=== PATIENT | female | born 2000 | race Caucasian/White ===

== ENCOUNTER 2021-01-07 13:03 | Outpatient (CLI) | payer BC, SELFPAY | END 2021-01-07 13:04 | disposition home or self-care (01) | LOC: ANHCOVIDVC 13:03 | PROVIDERS: PCP Physician Assistant | DX: Z23 Encounter for immunization (principal) | CPT/HCPCS: 0001A; 91300 ==

== ENCOUNTER 2021-01-28 13:00 | Outpatient (CLI) | payer BC, SELFPAY | END 2021-01-28 13:01 | disposition home or self-care (01) | LOC: ANHCOVIDVC 13:00 | PROVIDERS: PCP Physician Assistant | DX: Z23 Encounter for immunization (principal) | CPT/HCPCS: 0002A; 91300 ==

== ENCOUNTER 2021-08-15 15:12 | Emergency (ER) | payer BC, SELFPAY ==
--- NOTE | 2021-08-15 15:19 | ED.LOWEXIN ---
HPI - Extremity Injury (Lower) General Chief Complaint: Extremity Injury, Lower Stated Complaint: rt leg pain Time Seen by Provider: 08/15/21 15:19 Source: patient, RN notes reviewed and old records reviewed Mode of arrival: ambulatory Limitations: no limitations History of Present Illness HPI Narrative: 21-year-old female presents to the [facility] with complaints of right calf pain without bruising, swelling or redness. No signs of infection. Patient reports that she was practicing my discus throw. At 3 AM Tuesday morning when she felt a pain, pop and strain in the right posterior calf. No treatment prior to arrival. Patient has a history of bipolar, depression, ADHD. Patient requesting a work modification note. States that when she is at work she walks a lot. Related Data Home Medications Medication Instructions Recorded Confirmed dextroamphetamine-amphetamine 10 mg PO BID 08/15/21 08/15/21 lamotrigine 100 mg PO BID 08/15/21 08/15/21 Allergies Allergy/AdvReac Type Severity Reaction Status Date / Time No Known Allergies Allergy Unknown Unverified 08/15/21 15:28 Review of Systems Review of Systems: All systems reviewed & are unremarkable except as noted in HPI and below Constitutional: Constitutional: Reports no additional constitutional complaints, Denies chills and Denies fever(s) Eyes: Eyes: Reports no additional eye complaints ENT: Reports system reviewed and no additional complaints, except as documented Cardiovascular: Cardiovascular: Reports no additional cardiovascular complaints Respiratory: Respiratory: Reports no additional respiratory complaints Gastrointestinal: Gastrointestinal: Reports no additional gastrointestinal complaints Musculoskeletal: Musculoskeletal: Reports as per HPI and Reports muscle cramps (Right posterior calf) Integumentary/Breasts: Skin/Breast: Reports system reviewed and no additional complaints, except as docu Neurologic: Reports system reviewed and no additional complaints, except as documented Psychiatric: Psychiatric: Reports no additional psychiatric complaints Allergic/Immunologic: Allergic/Immunologic: Reports no additional allergic/immunologic complaints PMFSH Past Medical History Medical History Bipolar II disorder Major depression, recurrent Surgical History Surgical History [place] teeth removed Family History Family History Mother Family history of thyroid disease Grandparent Family history of thyroid disease Depression Hypertension Social History Social History Smoking status: Never smoker Alcohol intake: never Substance use: never Substance use type: does not use Additional occupation/education comments: 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 Comments At the time of my signature, I reviewed and agree with the nursing past medical, surgical, social, and family history. There is no relevant family history pertinent to the patient complaint. Exam Const: General: healthy appearing, no acute distress and alert Nutritional Appearance: well nourished Orientation/consciousness: patient oriented x3 Limitations: no limitations HENMT: Head: normal to inspection Eyes: Pupils: Equal, round and reactive pupils present Neck: Neck: normal visual inspection, no lymphadenopathy and no meningeal signs Chest: Chest palpation & inspection: normal inspection of the chest Resp: Effort & Inspection: normal respiratory effort Cardio: Rate: regular rate Rhythm: regular rhythm : General: Yes no CVA tenderness Back/Spine/Pelvis: Back: no CVA tenderness Skin: General skin exam: normal color Rashes: no rashes Wounds: no wounds Neuro: General: patient oriented x3, moves all extremities, no meningeal signs and no focal motor deficits Spee
[2021-08-15 15:20] VITALS: BP 106/68; PULSE 89; RESP 16; TEMP 36.3; O2SAT 100
== END 2021-08-15 15:38 | disposition home or self-care (01) ==
PROVIDERS: Emergency Provider Nurse Practitioner
DX: S86.111A Strain of other muscle(s) and tendon(s) of posterior muscle group at lower leg level, right leg, initial encounter (principal); X58.XXXA Exposure to other specified factors, initial encounter; F31.9 Bipolar disorder, unspecified
CPT/HCPCS: 99213; G0463

== ENCOUNTER 2021-09-24 23:32 | Emergency (ER) | payer BC, SELFPAY ==
--- NOTE | ~2021-09-24 | XR_ITS ---
EXAMINATION: XR chest 1V portable DATE: 09/25/2021 02:54 INDICATION: Chest pain. Streptococcus diagnosis. TECHNIQUE: frontal view of the chest was obtained. COMPARISON: None FINDINGS: The lungs are clear with no focal airspace opacities, pulmonary edema, pleural effusion or pneumothor ax. The cardiomediastinal silhouette is normal. Visualized bones and soft tissues are unremarkable. IMPRESSION: 1. Normal chest radiograph. Reviewed, dictated and finalized at location A. JELLY IMPRESSION: 1. Normal chest radiograph.
[2021-09-24 23:51] VITALS: BP 131/67; PULSE 98; RESP 18; TEMP 36.3; O2SAT 100
--- NOTE | 2021-09-25 02:40 | ECG_ITS ---
Measurements Intervals [place] Rate: 77 P: -8 LA: 160 QRS: 58 QRSD: 97 T: 12 QT: 377 QTc: 428 Interpretive Statements SINUS RHYTHM WITH SINUS ARRHYTHMIA NORMAL ECG Electronically Signed On 09-25-2021 6:01:27 HEATING FIXTURE TENDER by Lorenzo Bai D.O.
[2021-09-25] MEDS: methylPREDNISolone SOD SUCC 125 MG VIAL IM (03:06)
--- NOTE | 2021-09-25 03:19 | ED.GENADULT ---
HPI - General Adult General Chief complaint: Upper Respiratory Infection Stated complaint: I have strep, its hard to breathe Time Seen by Provider: 09/25/21 02:33 History of Present Illness HPI narrative: Patient 21-year-old female presents emerged department with chief complaint of sore throat and chest pain. Patient reports she was seen in urgent care diagnosed with strep today started on antibiotics and noticed that she felt as though her throat was still hurting and also noticed that she had developed pain in the right side of her chest. The patient states the pain is a pressure-like since reports not improved by anything or is worsened by anything Related Data Home Medications Medication Instructions Recorded Confirmed dextroamphetamine-amphetamine 10 mg PO BID 08/15/21 08/15/21 lamotrigine 100 mg PO BID 08/15/21 08/15/21 Allergies Allergy/AdvReac Type Severity Reaction Status Date / Time No Known Allergies Allergy Unknown Unverified 08/15/21 15:28 Review of Systems Review of Systems: A 10 system review of systems was completed on the patient and is negative except for what is stated in the HPI. Nursing and ancillary documentation was reviewed. 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 Exam Narrative: GENERAL: Well-appearing, well-nourished, and in no acute distress. HEAD: Normocephalic, atraumatic. EYES: PERRLA and EOMI. ENT: Nares clear, no rhinorrhea or epistaxis. Mucous membranes moist. NECK: Supple. CHEST: Clear to auscultation. No respiratory distress. HEART: Regular rate and rhythm. No murmur heard. Normal peripheral pulses. ABDOMEN: Soft, nontender, nondistended, normal active bowel sounds. EXTREMITIES: Normal range of motion. No edema. SKIN: Warm, dry, no rash. NEURO: No focal deficits. Alert and oriented x3. PSYCH: Normal mood and affect. Course Course Emergency Course: EKG is sinus rhythm rate of [address] elevation or ST depression Chest x-ray shows no evidence of focal infiltrate Vital Signs Vital signs: Vital Signs Temperature 36.3 C L 09/24/21 23:51 Pulse Rate 98 09/24/21 23:51 Respiratory Rate 18 09/24/21 23:51 Blood Pressure 131/67 09/24/21 23:51 Pulse Oximetry 100 09/24/21 23:51 Temperature 36.3 C L 09/24/21 23:51 Pulse Rate 98 09/24/21 23:51 Respiratory Rate 18 09/24/21 23:51 Blood Pressure 131/67 09/24/21 23:51 Pulse Oximetry 100 09/24/21 23:51 Medical Decision Making Vital Signs Vital Signs: Vital Signs Temperature 36.3 C L 09/24/21 23:51 Pulse Rate 98 09/24/21 23:51 Respiratory Rate 18 09/24/21 23:51 Blood Pressure 131/67 09/24/21 23:51 Pulse Oximetry 100 09/24/21 23:51 Temperature 36.3 C L 09/24/21 23:51 Pulse Rate 98 09/24/21 23:51 Respiratory Rate 18 09/24/21 23:51 Blood Pressure 131/67 09/24/21 23:51 Pulse Oximetry 100 09/24/21 23:51 Discharge Plan Discharge Clinical Impression: Pharyngitis Qualifiers: Pharyngitis/tonsillitis etiology: streptococcus Qualified Code(s): J02.0 - Streptococcal pharyngitis Upper respiratory infection Qualifiers: URI type: unspecified URI Qualified Code(s): J06.9 - Acute upper respiratory infection, unspecified Chest blank
[2021-09-25 03:50] VITALS: BP 130/78; PULSE 68; RESP 18; O2SAT 98
== END 2021-09-25 03:51 | disposition home or self-care (01) ==
PROVIDERS: Emergency Provider Emergency Medicine
DX: J02.9 Acute pharyngitis, unspecified (principal); J06.9 Acute upper respiratory infection, unspecified; R07.9 Chest pain, unspecified; F31.81 Bipolar II disorder
CPT/HCPCS: 71045; 93005; 96372; 99283; J2930

== ENCOUNTER 2021-09-28 11:26 | Emergency (ER) | payer BC, SELFPAY ==
--- NOTE | ~2021-09-28 | XR_ITS ---
EXAMINATION: XR chest 2V DATE: 09/28/2021 14:29 INDICATION: Left arm tingling. Chest tightness. TECHNIQUE: Frontal and lateral views of the chest were obtained. COMPARISON: Chest single view 09/25/2021 FINDINGS: The chest demonstrates clear lungs without pneumonia, pleural effusion, or pneumothorax. Th e heart size is normal. IMPRESSION: 1. No acute cardiopulmonary disease. Reviewed, dictated and finalized at location A. ESSOR OF LANGUAGES
--- NOTE | ~2021-09-28 | CT_ITS ---
EXAMINATION: CT brain wo con EXAM DATE: 09/28/2021 15:12 INDICATION: Paresthesias TECHNIQUE: Spiral CT of the head was performed without contrast. Axial, coronal and sagittal images were reviewed. The dose-length product (DLP) for this examination was 605.33 mGy-cm. The exposure w as tailored according to patient size, and iterative reconstruction (ASIR) was used as additional dos e reduction technique. There is no prior study for comparison. FINDINGS: There is no acute intraparenchymal hemorrhage. No evidence of intraparenchymal brain mass lesion. No evidence of acute infarction. There is no mass effect or midline shift. The ventricles are normal in size. There are no extra-axial collections. There are no acute calvarial fractures. T he orbits are unremarkable. Soft tissue is unremarkable. The visualized sinuses and mastoid air eloina ls are well aerated. IMPRESSION: 1. Normal head CT examination. Reviewed, dictated and finalized at location A. EMIC COACH
--- NOTE | ~2021-09-28 | US_ITS ---
EXAMINATION: US abdomen limited DATE: 09/28/2021 15:52 INDICATION: Right upper quadrant pain TECHNIQUE: Multiple grayscale and Doppler ultrasound images of the abdomen were obtained. COMPARISON: None available FINDINGS: The head and body of the pancreas are normal. The pancreatic tail is obscured by bowel gas. The liver is normal with normal echogenicity and echotexture. No surface nodularity. Normal hepatope louis flow in the main portal vein. The gallbladder is normal with no abnormal wall thickening, pericho lecystic fluid or stones. The normal common bile duct measures 4 mm. There was no sonographic Stroud sign. IMPRESSION: 1. Normal sonographic study of the gallbladder. Reviewed, dictated and finalized at location A. TLET PAIRER
[2021-09-28 11:33] VITALS: BP 137/90; PULSE 78; RESP 16; TEMP 36.3; O2SAT 100
--- NOTE | 2021-09-28 11:37 | ECG_ITS ---
Measurements Intervals [place] Rate: 80 P: 17 RI: 155 QRS: 62 QRSD: 87 T: 23 QT: 349 QTc: 403 Interpretive Statements SINUS RHYTHM WITH SINUS ARRHYTHMIA NORMAL ECG Electronically Signed On 09-28-2021 11:49:42 SECURITY SYSTEMS SPECIALIST by Lorenzo Bai D.O.
[2021-09-28 14:12] VITALS: BP 116/63; PULSE 89; RESP 24; O2SAT 99
[2021-09-28 14:32] VITALS: PULSE 83
--- NOTE | 2021-09-28 14:38 | ED.GENADULT ---
HPI - General Adult General Chief complaint: Unspecified Stated complaint: abd/chest pain Time Seen by Provider: 09/28/21 14:11 Source: patient Mode of arrival: ambulatory Limitations: no limitations History of Present Illness HPI narrative: This is a 21 year old female that presents to the ER with multiple complaints. Reports chest pain, shortness of breath, abdominal pain, feeling of a lump in her throat, and intermittent paresthesias. Symptoms have been ongoing today. Patient was evaluated here in the ED with chest pain a couple of days ago as well. Reports she is currently being treated for strep throat. Denies fevers. Related Data Home Medications Medication Instructions Recorded Confirmed dextroamphetamine-amphetamine 10 mg PO BID 08/15/21 08/15/21 lamotrigine 100 mg PO BID 08/15/21 08/15/21 Allergies Allergy/AdvReac Type Severity Reaction Status Date / Time No Known Allergies Allergy Unknown Verified 09/28/21 14:06 Review of Systems Review of Systems: CONSTITUTIONAL: Denies fever CARDIOVASCULAR: Reports chest pain. Denies edema. RESPIRATORY: Reports dyspnea. GASTROINTESTINAL: Reports abdominal pain. Denies nausea, vomiting, or diarrhea. 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 Exam Narrative: GENERAL: Well-appearing, well-nourished, and in no acute distress. HEAD: Normocephalic, atraumatic. EYES: PERRLA and EOMI. ENT: Nares clear, no rhinorrhea or epistaxis. Mucous membranes moist. Oropharynx without tonsillar hypertrophy exudate or other lesions. Bilateral TMs pearly bartlett non-bulging NECK: Supple. No adenopathy or masses. CHEST: Clear to auscultation. No respiratory distress. No wheezes rales or rhonchi HEART: Regular rate and rhythm. No murmur heard. Normal peripheral pulses. ABDOMEN: Soft, nontender, nondistended, normal active bowel sounds. EXTREMITIES: Normal range of motion. No edema. SKIN: Warm, dry, no rash. NEURO: No focal deficits. Alert and oriented x3. PSYCH: Normal mood and affect Course Vital Signs Vital signs: Vital Signs Temperature 97.3 F L 09/28/21 11:33 Pulse Rate 78 09/28/21 11:33 Respiratory Rate 16 09/28/21 11:33 Blood Pressure 137/90 09/28/21 11:33 Pulse Oximetry 100 09/28/21 11:33 Temperature 97.3 F L 09/28/21 11:33 Pulse Rate 83 09/28/21 14:32 Respiratory Rate 24 H 09/28/21 14:12 Blood Pressure 116/63 09/28/21 14:12 Pulse Oximetry 99 09/28/21 14:12 Medical Decision Making MDM Narrative Medical decision making narrative: Patient presents to the emergency department for multiple complaints. Reporting chest pain, shortness of breath, abdominal pain, and intermittent paresthesias. She is afebrile and nontoxic-appearing. Vitals are stable. She is neurologically intact. CBC does show leukocytosis to 19. Likely due to her recent diagnosis of strep throat. She also is currently on steroids. Does report her throat is continuing to improve. Metabolic panel and lipase without concerning findings. EKG without concerning changes and baseline troponin is negative. D-dimer is not elevated. Chest x-ray without acute cardio
[2021-09-28] MEDS: PANTOPRAZOLE SODIUM IV 40 MG VIAL IV PUSH (14:50)
[2021-09-28 14:56] LABS: Basophils Percent Auto 0.2 % (0.2-1.2); Hemoglobin 13.1 g/dL (12.0-15.0); Immature Granulocyte Absolute 0.23 K/mm3 (0.00-0.031); Immature Granulocyte Percent A 1.2 % (0-0.5); Lymphocytes Absolute Auto 1.22 K/mm3 (0.9-3.2); Lymphocytes Percent Auto 6.4 % (18.3-44.2); Mean Corpuscular HGB Conc 33.6 g/dl (32-36); Mean Corpuscular Hemoglobin 29.2 pg (26-34); Mean Corpuscular Volume 87.1 fl (80-100); Mean Platelet Volume 9.7 fl (7.4-10.4); Monocytes Absolute Auto 0.6 K/mm3 (0.1-0.6); Monocytes Percent Auto 3.3 % (2.6-8.5); Neutrophils Absolute Auto 16.9 K/mm3 (1.3-6.7); Neutrophils Percent Auto 88.9 % (45.5-73.1); Platelet Count Result 291 k/mm3 (150-375); Red Blood Count 4.48 M/mm3 (4.2-5.4); Red Cell Distribution Width 12.2 % (11.5-14.5)
[2021-09-28 15:04] LABS: Alanine Aminotransferase 15 U/L (4-35); Albumin Level 4.4 g/dL (3.5-5.1); Alkaline Phosphatase 77 U/L (38-126); Anion Gap 11 mmol/L (8-16); Aspartate Amino Transferase 25 U/L (14-36); Bilirubin,Total 0.3 mg/dL (0.2-1.3); Blood Urea Nitrogen 14 mg/dL (7-17); Carbon Dioxide 19 mmol/L (22-30); Chloride 108 mmol/L (98-107); Estimated CRCL calculation 108 ml/min; Estimated Glomerular Filt Rate > 60; Glucose 118 mg/dL (65-110); Lipase 37 U/L (23-300); Potassium 4.3 mmol/L (3.4-5.0); Sodium 138 mmol/L (137-145)
[2021-09-28 15:07] LABS: Prothrombin Time 13.1 Seconds (11.1-14.7)
[2021-09-28 15:08] LABS: Partial Thromboplastin Time 28.9 SECONDS (22.3-36.8)
[2021-09-28 15:16] LABS: Troponin I < 0.012 ng/mL (0.000-0.034)
[2021-09-28 15:43] LABS: D Dimer 0.27 ug/mL (<0.48)
[2021-09-28 16:26] VITALS: BP 124/68; PULSE 79; RESP 15; O2SAT 100
== END 2021-09-28 16:29 | disposition home or self-care (01) ==
PROVIDERS: Physician Assistant; Emergency Provider Emergency Medicine
DX: R07.9 Chest pain, unspecified (principal); R10.11 Right upper quadrant pain; F31.81 Bipolar II disorder
CPT/HCPCS: 36415; 70450; 71046; 76705; 80053; 83690; 84484; 85025; 85380; 85610; 85730; 93005; 96374; 99284; C9113

== ENCOUNTER 2022-04-13 22:39 | Emergency (ER) | payer BC, SELFPAY ==
--- NOTE | ~2022-04-13 | US_ITS ---
EXAMINATION: US pelvic complete DATE: 04/14/2022 06:41 INDICATION: Right lower quadrant abdominal pain. TECHNIQUE: Multiple transabdominal sonographic images of the pelvis were obtained. COMPARISON: CT abdomen and pelvis 04/14/2022 FINDINGS: The uterus measures 5.7 x 3.6 x 4.0 cm. There is physiologic free fluid in the pelvis. The endometria l complex measures 7 mm in thickness. The right ovary measures 3.3 x 2.2 x 2.6 cm. The left ovary kyle sures 2.6 x 1.7 x 1.9 cm. There is normal vascular flow in the ovaries. IMPRESSION: 1. Normal pelvis. Reviewed, dictated and finalized at location A. IMPRESSION: 1. Normal pelvis.
--- NOTE | ~2022-04-13 | CT_ITS ---
EXAMINATION: CT abdomen pelvis wo con DATE: 04/14/2022 03:59 INDICATION: Right lower quadrant abdominal pain. TECHNIQUE: Computed tomography (CT) of the abdomen and pelvis was performed without intravenous contr ast. Automated exposure control and iterative reconstruction technique were employed. The dose-length product was 795.42 mGy-cm. COMPARISON: None. FINDINGS: The visualized portions of the lung bases are clear without pneumonia or pleural effusion. The heart size is normal. No pericardial effusion. The liver, gallbladder, spleen, pancreas, adrenal glands, and kidneys are normal. There are no dilated loops of bowel. The appendix is normal. There ar e no pathologically enlarged lymph nodes. There is physiologic fluid in the pelvis. There is a domina nt follicle in right ovary. There is mild thoracolumbar spondylosis. IMPRESSION: 1. No etiology for the patient's symptoms. Reviewed, dictated and finalized at location A.
[2022-04-13 22:55] VITALS: BP 119/62; PULSE 82; RESP 16; TEMP 36.7; O2SAT 100
[2022-04-13 23:14] LABS: Basophils Percent Auto 0.3 % (0.2-1.2); Eosinophils Absolute Auto 0.2 K/mm3 (0-0.3); Eosinophils Percent Auto 1.3 % (0-4.4); Hematocrit 38.3 % (37.0-47.0); Hemoglobin 12.7 g/dL (12.0-15.0); Immature Granulocyte Absolute 0.08 K/mm3 (0.00-0.031); Immature Granulocyte Percent A 0.7 % (0-0.5); Lymphocytes Absolute Auto 2.32 K/mm3 (0.9-3.2); Lymphocytes Percent Auto 19.7 % (18.3-44.2); Mean Corpuscular HGB Conc 33.2 g/dl (32-36); Mean Corpuscular Hemoglobin 27.8 pg (26-34); Mean Corpuscular Volume 83.8 fl (80-100); Mean Platelet Volume 9.7 fl (7.4-10.4); Monocytes Absolute Auto 0.9 K/mm3 (0.1-0.6); Monocytes Percent Auto 7.3 % (2.6-8.5); Neutrophils Absolute Auto 8.3 K/mm3 (1.3-6.7); Neutrophils Percent Auto 70.7 % (45.5-73.1); Platelet Count Result 299 k/mm3 (150-375); Red Blood Count 4.57 M/mm3 (4.2-5.4); Red Cell Distribution Width 12.4 % (11.5-14.5); White Blood Count 11.8 K/mm3 (4.5-10.0)
[2022-04-13 23:26] LABS: Alanine Aminotransferase 15 U/L (6-35); Albumin Level 4.4 g/dL (3.5-5.1); Alkaline Phosphatase 86 U/L (38-126); Anion Gap 9 mmol/L (8-16); Aspartate Amino Transferase 31 U/L (14-36); Bilirubin,Total 0.1 mg/dL (0.2-1.3); Blood Urea Nitrogen 13 mg/dL (7-17); Calcium 9.1 mg/dL (8.4-10.2); Carbon Dioxide 21 mmol/L (22-30); Chloride 106 mmol/L (98-107); Estimated CRCL calculation 110 ml/min; Estimated Glomerular Filt Rate > 60; Glucose 90 mg/dL (65-110); Lipase 43 U/L (23-300); Sodium 136 mmol/L (137-145)
[2022-04-13 23:30] LABS: Appearance Urine Clear (Clear); Bilirubin Urine 1+ (Negative); Blood Urine Negative (Negative); Color Urine Yellow (Yellow); Glucose Urine UA Negative (Negative); Ketones Urine Trace mg/dL (Negative); Leukocyte Esterase Ur Negative LEU/UL (Negative); Nitrate Urine Negative (Negative); Protein Urine Trace mg/dL (Negative); Specific Grav Ur >= 1.030 (1.001-1.035); Urobilinogen Urine 0.2 mg/dL (<2.0); pH Urine 5.5 (5.0-9.0)
[2022-04-13 23:31] LABS: Add Urine Microscopic? YES; Bacteria Urine Trace /hpf; Mucus Urine Few /lpf; Squamous Epithelial Cell Urine Moderate /hpf (Few)
--- NOTE | 2022-04-14 05:11 | ED.ABDPAIN ---
HPI - Abdominal Pain General Chief Complaint: Abdominal Pain Stated Complaint: right lower abd pain Time Seen by Provider: 04/14/22 03:43 History of Present Illness HPI narrative: 21-year-old female presenting to the emergency department for evaluation of right lower quadrant pain. Patient states symptoms that started approximately 6:00 tonight. Patient states for the beginning of the day that she had decreased appetite with associated nausea. Patient denies any vomiting or diarrhea. Patient states over the course of evening the pain has been intermittent. When the pain occurs she describes it as sharp and stabbing. Patient denies any significant past medical history. Patient denies any previous abdominal surgical history. Patient denies any personal history of ovarian cysts although there is a familial history of cysts. Related Data Home Medications Medication Instructions Recorded Confirmed dextroamphetamine-amphetamine 10 10 mg PO BID 08/15/21 08/15/21 mg tablet lamotrigine 100 mg tablet 100 mg PO BID 08/15/21 08/15/21 liothyronine 25 mcg tablet tablet 04/13/22 Allergies Allergy/AdvReac Type Severity Reaction Status Date / Time No Known Allergies Allergy Unknown Verified 04/13/22 22:57 Review of Systems Review of Systems: CONSTITUTIONAL: Denies fever, chills, or sweats. EYES: Denies visual changes, redness, or discharge. ENT: Denies rhinorrhea, congestion, sore throat, or otalgia. CARDIOVASCULAR: Denies chest pain, palpitations, or edema. RESPIRATORY: Denies cough or dyspnea. GASTROINTESTINAL: See HPI GENITOURINARY: Denies dysuria or hematuria. SKIN: Denies rash or itching. MUSCULOSKELETAL: Denies back pain, joint pain, or myalgia. NEUROLOGIC: Denies headache, numbness, or weakness. 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 Exam Narrative: APPEARANCE: Well appearing, no pain, no distress, well-nourished. HEAD: normocephalic, atraumatic. EYES: PERRLA/EOMI, conjunctivae clear. NOSE: Normal no drainage NECK: Supple. No adenopathy, no masses. RESPIRATORY: Airway patent, respirations nonlabored. Clear to auscultation bilaterally, no rales, rhonchi, wheezing. CARDIOVASCULAR: Regular rate and rhythm without murmurs rubs or gallops. ABDOMINAL: Soft, tenderness of right lower quadrant, Rovsing sign MUSCULOSKELETAL: Moves all extremities. Strength/ROM intact, No edema, No calf tenderness. NEURO: Alert. Cranial nerves II through XII intact. Grossly intact SKIN: Warm, dry. Normal Color Course Course Emergency Course: CT scan showed normal-appearing appendix. CT scan also did reveal a 2 x 2.2 cm right ovarian cyst. Patient is describing intermittent right lower quadrant pain. Ultrasound is being ordered to rule out ovarian torsion. Patient and family were updated on the plan to order an ultrasound and on the results of the CT scan. Patient continues to decline any medications for nausea or for pain control. At time of signout to Dr. Diop ultrasound is pending Vital Signs Vital signs: Vital Signs Temperature 98.0 F 04/13/22 22:55 Pulse Rate 82 04/13/22 22:55 Respiratory Rate 16 04/13/22 22:55 Blood Pressure 119/62 04/13/22 22:55 Pulse Oximetry 100 04/13/22 22:55
[2022-04-14 05:42] VITALS: O2SAT 100
[2022-04-14 06:02] VITALS: BP 110/58
[2022-04-14 06:08] VITALS: O2SAT 97
[2022-04-14 06:17] VITALS: BP 115/56
[2022-04-14 06:20] VITALS: O2SAT 100
[2022-04-14 07:22] VITALS: BP 128/72; PULSE 72; RESP 16; O2SAT 98
== END 2022-04-14 07:23 | disposition home or self-care (01) ==
PROVIDERS: Emergency Provider Emergency Medicine
DX: N83.201 Unspecified ovarian cyst, right side (principal); F31.81 Bipolar II disorder
CPT/HCPCS: 36415; 74176; 76856; 80053; 81001; 81025; 83690; 85025; 99284

== ENCOUNTER 2022-11-27 08:56 | Emergency (ER) | payer BC, SELFPAY ==
--- NOTE | ~2022-11-27 | CT_ITS ---
EXAMINATION: CT brain wo con INDICATION: Seizure-like activity COMPARISON: 09/28/2021 TECHNIQUE: Standard unenhanced head CT. The dose-length product (DLP) was 605.33 mGy-cm. The mA was a djusted according to patient size. Iterative reconstruction technique was employed. FINDINGS: There is no intracranial hemorrhage, acute infarction, or abnormal mass lesion. The ventric les are normal. There is no abnormal mass effect or midline shift. The bartlett-white matter differentiat ion is normal. The basal cisterns are patent. The orbits are normal. There is mild to moderate mucosa l thickening of the paranasal sinuses. IMPRESSION: 1. No acute intracranial abnormality. 2. Sinus disease. Reviewed, dictated and finalized at location A. D CARE AIDE
[2022-11-27 09:01] VITALS: BP 133/81; PULSE 74; RESP 12; TEMP 37.1; O2SAT 99
--- NOTE | 2022-11-27 09:11 | ED.HA ---
HPI - Headache General Chief Complaint: Headache Stated Complaint: seizure like activity Time Seen by Provider: 11/27/22 08:58 History of Present Illness HPI Narrative: 22-year-old female with history of ADHD on adderall here for evaluation of multiple medical complaints. Patient states that last night she started to have a tingling sensation on the right side of her face associated with some nausea, pounding headache, photophobia and phonophobia. She left work early due to her symptoms, took some medication with improvement of her headache. She does state that she also had some visual hallucinations last night, tunnel vision , right eye twitching and a fullness on the right side of her face. These symptoms have improved. Denies personal history of migraine headache but states that her sister has migraines. Patient's mother brought her to the ED today due to symptoms of uncontrollable shaking while she was standing, lasting for about a minute before resolving without intervention. Patient remembers this event, is unsure what happened but states that she did not have control over her body shaking. She was standing the whole time and did not lose consciousness. Currently she is in her usual state of health and denies any symptoms. Denies illicit drug use. Related Data Home Medications Medication Instructions Recorded Confirmed dextroamphetamine-amphetamine 10 10 mg PO BID 08/15/21 08/15/21 mg tablet lamotrigine 100 mg tablet 100 mg PO BID 08/15/21 08/15/21 liothyronine 25 mcg tablet tablet 04/13/22 Allergies Allergy/AdvReac Type Severity Reaction Status Date / Time No Known Allergies Allergy Unknown Verified 04/13/22 22:57 Review of Systems Review of Systems: Gen.: Denies fevers or chills Eyes: Denies eye pain or visual change ENT: Denies congestion Respiratory: Denies shortness of breath or cough CV: Denies chest pain or palpitations GI: Denies abdominal pain nausea, emesis or diarrhea denies burning, urgency, frequency or hematuria Musculoskeletal: Denies back pain or muscle pain Neuro: Reports migraine headache, per HPI Skin: Denies rash Except as documented, all other systems reviewed and negative [facility] Past Medical History Medical History Bipolar II disorder Major depression, recurrent Surgical History Surgical History [place] teeth removed Family History Family History Mother Family history of thyroid disease Grandparent Family history of thyroid disease Depression Hypertension Social History Social History Smoking status: Never smoker Alcohol intake: never Substance use: never Substance use type: does not use Living arrangements: with family Occupation/Education: occupation Additional occupation/education comments: 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 Exam Narrative: APPEARANCE: Well appearing, no pain in distress, well-nourished. Head: Normocephalic and atraumatic. EYES: pupils are 5 mm bilaterally and reactive to light. EOMI, conjunctivae clear NOSE: No nasal drainage EARS: External ear normal in appearance THROAT: No tongue lacerations. Oropharynx is clear. Mucous membranes are moist. NECK: Supple. No adenopathy, no masses. RESPIRATORY: Airway patent, respirations nonlabored. Clear to auscultation bilaterally, no rales, rhonchi, wheezing. CARDIOVASCULAR: Regular rate and rhythm without murmurs, rubs, or gallops. ABDOMINAL: Normoactive bowel sounds. Soft, nontender, nondistended. No rebound tenderness or guarding. MUSCULOSKELETAL: Extremities are warm and well-perfused. Moves all extremities well. No edema. NEURO: [id number] normal. Cranial nerves II through XII intact. Normal speech. No focal neurologic deficits
[2022-11-27 10:13] LABS: Amphetamine Screen Urine Positive (Negative); Barbiturate Screen Urine Negative (Negative); Benzodiazepines Screen Urine Negative (Negative); Cannabinoid Screen Urine Negative (Negative); Cocaine Screen Urine Negative (Negative); Methadone Screen Urine Negative (Negative); Opiate Screen Urine Negative (Negative); Phencyclidine Screen Urine Negative (Negative)
[2022-11-27 10:37] LABS: Basophils Percent Auto 0.4 % (0.2-1.2); Eosinophils Absolute Auto 0.4 K/mm3 (0-0.3); Eosinophils Percent Auto 4.9 % (0-4.4); Hematocrit 38.9 % (37.0-47.0); Hemoglobin 12.7 g/dL (12.0-15.0); Immature Granulocyte Absolute 0.06 K/mm3 (0.00-0.031); Immature Granulocyte Percent A 0.7 % (0-0.5); Lymphocytes Absolute Auto 2.61 K/mm3 (0.9-3.2); Lymphocytes Percent Auto 31.8 % (18.3-44.2); Mean Corpuscular HGB Conc 32.6 g/dl (32-36); Mean Corpuscular Hemoglobin 27.8 pg (26-34); Mean Corpuscular Volume 85.1 fl (80-100); Mean Platelet Volume 9.8 fl (7.4-10.4); Monocytes Absolute Auto 0.9 K/mm3 (0.1-0.6); Monocytes Percent Auto 10.8 % (2.6-8.5); Neutrophils Absolute Auto 4.2 K/mm3 (1.3-6.7); Neutrophils Percent Auto 51.4 % (45.5-73.1); Platelet Count Result 311 k/mm3 (150-375); Red Blood Count 4.57 M/mm3 (4.2-5.4); Red Cell Distribution Width 13.1 % (11.5-14.5); White Blood Count 8.2 K/mm3 (4.5-10.0)
[2022-11-27 10:47] LABS: Alanine Aminotransferase 16 U/L (6-35); Albumin Level 4.3 g/dL (3.5-5.1); Alkaline Phosphatase 105 U/L (38-126); Anion Gap 7 mmol/L (8-16); Aspartate Amino Transferase 27 U/L (14-36); Bilirubin,Total 0.4 mg/dL (0.2-1.3); Blood Urea Nitrogen 13 mg/dL (7-17); Calcium 8.7 mg/dL (8.4-10.2); Carbon Dioxide 26 mmol/L (22-30); Chloride 103 mmol/L (98-107); Estimated Glomerular Filt Rate > 60; Glucose 109 mg/dL (65-110); Lactic Acid Reflex 1.3 mmol/L (0.7-2.0); Potassium 3.6 mmol/L (3.4-5.0); Sodium 136 mmol/L (137-145)
[2022-11-27 11:38] VITALS: BP 126/84; PULSE 84; RESP 16; O2SAT 98
== END 2022-11-27 11:39 | disposition home or self-care (01) ==
PROVIDERS: Emergency Provider Physician Assistant
DX: G43.109 Migraine with aura, not intractable, without status migrainosus (principal); F90.9 Attention-deficit hyperactivity disorder, unspecified type; Z79.899 Other long term (current) drug therapy
CPT/HCPCS: 36415; 70450; 80053; 80307; 81025; 83605; 84443; 85025; 99284

== ENCOUNTER 2023-09-13 23:48 | Emergency (ER) | payer BC, SELFPAY ==
[2023-09-13 23:51] VITALS: BP 141/84; PULSE 88; RESP 20; TEMP 36.8; O2SAT 100
--- NOTE | 2023-09-14 00:14 | ED.WOUNDLAC ---
HPI - Wound/Laceration General Chief Complaint: Wound/Laceration Stated Complaint: pincture wound to left thumb Time Seen by Provider: 09/13/23 23:57 Source: patient Mode of arrival: ambulatory Limitations: no limitations History of Present Illness HPI narrative: This is a 23 year old female that presents to the ER after a puncture wound at work today. Small puncture wound to the base of the left thumb. She is unsure of her last tetanus vaccination. Denies decreased ROM or numbness. Related Data Home Medications Medication Instructions Recorded Confirmed dextroamphetamine-amphetamine 10 10 mg PO BID 08/15/21 08/15/21 mg tablet lamotrigine 100 mg tablet 100 mg PO BID 08/15/21 08/15/21 liothyronine 25 mcg tablet tablet 04/13/22 Allergies Allergy/AdvReac Type Severity Reaction Status Date / Time No Known Allergies Allergy Unknown Verified 04/13/22 22:57 Review of Systems Review of Systems: CONSTITUTIONAL: Denies fever SKIN: Reports laceration All systems reviewed & are unremarkable except as noted in HPI and below PMFSH Past Medical History Medical History Bipolar II disorder Major depression, recurrent Surgical History Surgical History [place] teeth removed Family History Family History Mother Family history of thyroid disease Grandparent Family history of thyroid disease Depression Hypertension Social History Social History Smoking status: Never smoker Alcohol intake: never Substance use: never Substance use type: does not use Living arrangements: with family Occupation/Education: occupation Additional occupation/education comments: 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 Exam Narrative: GENERAL: Well-appearing, well-nourished, and in no acute distress. HEAD: Normocephalic, atraumatic. EYES: EOMI. EXTREMITIES: Normal range of motion. No edema. 0.5cm linear superficial laceration at the base of the left first finger. No active bleeding SKIN: Warm, dry, no rash. NEURO: No focal deficits. Alert and oriented x3. PSYCH: Normal mood and affect Course Course Emergency Course: Patient agrees with plan of care Vital Signs Vital signs: Vital Signs Temperature 98.3 F 09/13/23 23:51 Pulse Rate 88 09/13/23 23:51 Respiratory Rate 20 09/13/23 23:51 Blood Pressure 141/84 H 09/13/23 23:51 Pulse Oximetry 100 09/13/23 23:51 Oxygen Delivery Room Air 09/13/23 23:51 Temperature 98.3 F 09/13/23 23:51 Pulse Rate 88 09/13/23 23:51 Respiratory Rate 20 09/13/23 23:51 Blood Pressure 141/84 H 09/13/23 23:51 Pulse Oximetry 100 09/13/23 23:51 Oxygen Delivery Room Air 09/13/23 23:51 MDM - Wound/Laceration MDM Narrative Medical decision making narrative: Patient presents to the ER for small superficial laceration sustained earlier in the evening. Patient reports cleaning the area with soap and water after. Unsure of last tetanus vaccination. Patient was updated and educated on further wound care. She is to follow up with PCP if needed. She was given warnings to return to the ER Differential Diagnosis Differential diagnosis: Likely laceration, abrasion and avulsion of skin Critical Care Time Critical Care Time Critical Care Time: No Discharge Plan Discharge Clinical Impression: Puncture wound Patient Disposition: Home, Self-Care Condition: Stable Instructions: Puncture Wound (ED) Additional Instructions: Return to the emergency department if you experience fever, redness or swelling of your wound, abnormal drainage from your wound, or any other symptoms that are concerning to you. Apply antibiotic ointment daily. Do not soak the wound. Clean with mild soap and water daily Foll
[2023-09-14] MEDS: TETANUS,DIPHTHERIA,AC PERTUSSIS ADULT (0.5 ML) BOOSTRIX IM (00:19)
== END 2023-09-14 00:42 | disposition home or self-care (01) ==
LOC: ANHED 09-14 00:19
PROVIDERS: Emergency Provider Physician Assistant
DX: S61.032A Puncture wound without foreign body of left thumb without damage to nail, initial encounter (principal); F32.A Depression, unspecified; W26.8XXA Contact with other sharp object(s), not elsewhere classified, initial encounter; Z23 Encounter for immunization
CPT/HCPCS: 90471; 90715; 99282

== ENCOUNTER 2025-04-17 03:05 | Emergency (ER) | payer BC, SELFPAY ==
--- NOTE | ~2025-04-17 | XR_ITS ---
Right Forearm AP and lateral views of the right forearm were performed. Clinical History: Status post fall Findings: No fracture or dislocation is seen. Osseous alignment in anatomic. Joint spaces are prese rved. Soft tissues are unremarkable. Impression: Unremarkable exam. Reviewed, dictated and finalized at location . Impression: Unremarkable exam.
--- NOTE | ~2025-04-17 | XR_ITS ---
Right elbow Technique: AP, oblique, and lateral views were obtained. Clinical History: Pain Findings: No acute fracture or dislocation is seen. Osseous alignment is anatomic. Joint spaces are p reserved. There is no displacement of the fat pads, and soft tissues are unremarkable. Impression: Unremarkable radiographs. Reviewed, dictated and finalized at location . Impression: Unremarkable radiographs.
[2025-04-17 03:11] VITALS: BP 142/67; PULSE 103; RESP 18; TEMP 36.7; O2SAT 100
--- NOTE | 2025-04-17 03:16 | ED.GENADULT ---
HPI - General Adult General Chief complaint: Extremity Injury, Upper Stated complaint: i think i broke my right arm Time Seen by Provider: 04/17/25 03:09 History of Present Illness HPI narrative: 24-year-old female presenting to the emergency department for evaluation for pain in injury to her right forearm. Patient states that she just got off from work and was walking down some stairs and fell. Patient denies striking head denies any loss conscious. Patient's primary complaint is pain of the right forearm. Patient does have a hematoma the right forearm. Related Data Home Medications ?Medication ?Instructions ?Recorded ?Confirmed ?Last Taken ?Type dextroamphetamine-amphetamine 10 10 mg PO BID 08/15/21 08/15/21 Unknown History mg tablet lamotrigine 100 mg tablet 100 mg PO BID 08/15/21 08/15/21 Unknown History liothyronine 25 mcg tablet tablet 04/13/22 Unknown History Allergies Allergy/AdvReac Type Severity Reaction Status Date / Time No Known Allergies Allergy Unknown Verified 04/17/25 03:16 Review of Systems Review of Systems: All systems reviewed & are unremarkable except as noted in HPI and below PMFSH Past Medical History Medical History Bipolar II disorder Major depression, recurrent Surgical History Surgical History [place] teeth removed Family History Family History Mother Family history of thyroid disease Grandparent Family history of thyroid disease Depression Hypertension Social History Social History Smoking status: Never smoker Alcohol intake: never Substance use: never Substance use type: does not use Living arrangements: with family Occupation/Education: occupation Additional occupation/education comments: 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 Exam Narrative: APPEARANCE: Well appearing, no pain, no distress, well-nourished. HEAD: normocephalic, atraumatic. EYES: PERRLA/EOMI, conjunctivae clear. NOSE: Normal no drainage EARS:TMS clear with good light reflex. THROAT: Pharynx clear, no exudate. NECK: Supple. No adenopathy, no masses. RESPIRATORY: Airway patent, respirations nonlabored. Clear to auscultation bilaterally, no rales, rhonchi, wheezing. CARDIOVASCULAR: Regular rate and rhythm without murmurs rubs or gallops. ABDOMINAL: Soft, nontender, nondistended, normal bowel sounds MUSCULOSKELETAL: Hematoma of right forearm with mild tenderness to right elbow, no tenderness to right hand, neurovascularly intact NEURO: Alert. Cranial nerves II through XII intact. Good gait. Good coordination SKIN: Warm, dry. Normal Color Course Vital Signs Vital signs: Vital Signs Temperature 98.0 F 04/17/25 03:11 Pulse Rate 103 H 04/17/25 03:11 Respiratory Rate 18 04/17/25 03:11 Blood Pressure 142/67 H 04/17/25 03:11 Pulse Oximetry 100 04/17/25 03:11 Oxygen Delivery Room Air 04/17/25 03:11 Temperature 98.0 F 04/17/25 03:11 Pulse Rate 103 H 04/17/25 03:11 Respiratory Rate 18 04/17/25 03:11 Blood Pressure 142/67 H 04/17/25 03:11 Pulse Oximetry 100 04/17/25 03:11 Oxygen Delivery Room Air 04/17/25 03:11 Medical Decision Making Vital Signs Vital Signs: Vital Signs Temperature 98.0 F 04/17/25 03:11 Pulse Rate 103 H 04/17/25 03:11 Respiratory Rate 18 04/17/25 03:11 Blood Pressure 142/67 H 04/17/25 03:11 Pulse Oximetry 100 04/17/25 03:11 Oxygen Delivery Room Air 04/17/25 03:11 Temperature 98.0 F 04/17/25 03:11 Pulse Rate 103 H 04/17/25 03:11 Respiratory Rate 18 04/17/25 03:11 Blood Pressure 142/67 H 04/17/25 03:11 Pulse Oximetry 100 04/17/25 03:11 Oxygen Delivery Room Air 04/17/25 03:11 Imaging Data My impression: X-ray forearm: Soft tissue swelling, no acute fracture or dislocation X-ray elbow: No acute fracture or dislocation Radiologist's impression: Impressions Elbow X-Ray 04/17/25 05:35 Impression: Unremarkable radiographs. Forearm X-Ray 04/17/25 05:36 Impression: Unremarkable exam. Discharge Plan Discharge Clinical Impression: Arm contusion Patient Disposition: Home Condition: Stable Instructions: Antibiotic Form, Contusion in Adults (ED) Additional Instructions: Your x-rays were negative for acute fractures. Tylenol and ibuprofen for pain control. Have close follow-up with your primary care physician. Patient Language: Sami Prescriptions: No Action dextroamphetamine-amphetamine 10 mg tablet 10 mg PO BID lamotrigine 100 mg tablet 100 mg PO BID ibuprofen 600 mg tablet 600 mg PO TID PRN (Reason: pain) Qty: 30 0RF liothyronine 25 mcg tablet prednisone 20 mg tablet 40 mg PO DAILY 5 Days Qty: 10 0RF Follow-up/Referrals: PHYSICIAN,SOURCER [Primary Care Provider] -
== END 2025-04-17 03:42 | disposition home or self-care (01) ==
PROVIDERS: Emergency Provider Emergency Medicine
DX: S50.11XA Contusion of right forearm, initial encounter (principal); F31.81 Bipolar II disorder; W10.9XXA Fall (on) (from) unspecified stairs and steps, initial encounter
CPT/HCPCS: 73080; 73090; 99283